=== PATIENT | male | born 1980 | race Caucasian/White ===

== ENCOUNTER 2016-12-05 13:47 | Emergency (ER) ==
[2016-12-05 13:57] VITALS: BP 120/78; TEMP 97.7; BMI 23.5
--- NOTE | 2016-12-05 14:15 | ED.PDOC ---
General ED Provider: Dr. MALI TERAN JR Chief Complaint: Tooth Problem Stated Complaint: Teeth carious at gum line. Several teeth hurt. Tylenol not helping. States unable to get dental appt until January. [ End ]97.7 104 20 96% 120/78 810 CONCERNED ABOUT FAMILY HISTORY OF CANCER AND LINGUAL LIGAMENT Time Seen by Physician: 14:13 Mode of Arrival: Walk-In Information Source: Patient Exam Limitations: No limitations [facility] Nursing and Triage Documentation Reviewed and Agree: No Review of Systems - Review Of Systems Constitutional: Reports: No symptoms Eyes: Reports: No symptoms Ears, Nose, Mouth, Throat: Reports: Mouth pain Respiratory: Reports: No symptoms Cardiac: Reports: No symptoms GI: Reports: No symptoms : Reports: No symptoms Musculoskeletal: Reports: No symptoms Skin: Reports: No symptoms Neurological: Reports: No symptoms Endocrine: Reports: No symptoms Hematologic/Lymphatic: Reports: No symptoms All Other Systems: Reviewed and Negative Past Medical History - Past Medical History Endocrine: Reports: None Cardiovascular: Reports: None Respiratory: Reports: None Hematological: Reports: None Gastrointestinal: Reports: None Genitourinary: Reports: None Neuro/Psych: Reports: None Musculoskeletal: Reports: None Cancer: Reports: None Other Pertinent Past Medical History: PINEAL GLAND MASS, GALL BLADDER[ End ] - Surgical History General Surgical History: Reports: Cholecystectomy, Other - Family History Family History: Reports: Cancer - Social History Smoking Status: Current every day smoker Hx Substance Use: No Alcohol Screening: None Physical Exam - Physical Exam Appearance: Well-appearing Pain Distress: Moderate Eyes: BIANCA, EOMI, Conjunctiva clear ENT: Erythema Neck: Supple Respiratory: Airway patent, Breath sounds clear, Breath sounds equal, Respirations nonlabored Cardiovascular: RRR, Pulses normal, No rub, No murmur GI/: Soft, Nontender, No masses, Bowel sounds normal, No Organomegaly Musculoskeletal: Normal strength, ROM intact, No edema, No calf tenderness Skin: Warm, Dry, Normal color Neurological: Sensation intact, Motor intact, Reflexes intact, Cranial nerves intact, Alert, Oriented Psychiatric: Affect appropriate, Mood appropriate Critical Care Note - Critical Care Note Total Time (mins): 0 Course - Course Vital Signs: Temp Pulse Resp BP Pulse Ox 12/05/16 13:48 97.7 F 104 H 20 120/78 96 Departure - Departure Time of Disposition: 14:14 Disposition: HOME SELF-CARE Discharge Problem: Toothache Instructions: Toothache (ED) Condition: Fair Pt referred to PMD for follow-up: Yes Additional Instructions: FOLLOW UP DENTIST SOON POSSIBLE NAPROSYN FOR PAIN PENICILLIN FOR INFECTION call or follow up with PMD if any difficulty with medications no evidence of cancer on physical exam with family history cancer would have GI evaluation at 40 or 45 years old consider lymph node biopsy if nodes enlarged(not clinically enlarged) tongue appears normal discuss pineal gland follow up with PMD Prescriptions: Naproxen [Naprosyn] 500 mg PO Q12HR PRN #30 tablet PRN Reason: PAIN Penicillin V Potassium 500 mg PO QID #28 tablet Allergies/Adverse Reactions: Allergies aspirin Adverse Reaction (Verified 12/05/16 13:57) SURGICAL TAPE Adverse Reaction (Uncoded 06/01/14 14:40) Home Medications: Ambulatory Orders Naproxen [Naprosyn] 500 mg PO Q12HR PRN #30 tablet 12/05/16 Penicillin V Potassium 500 mg PO QID #28 tablet 12/05/16
== END 2016-12-05 14:33 | disposition home or self-care (01) ==
LOC: ED 13:47
DX: K08.89 Other specified disorders of teeth and supporting structures (principal); K02.7 Dental root caries; F17.210 Nicotine dependence, cigarettes, uncomplicated; Z80.9 Family history of malignant neoplasm, unspecified
CPT/HCPCS: 99282

== ENCOUNTER 2017-04-12 17:50 | Emergency (ER) ==
[2017-04-12 18:00] VITALS: BP 128/82; TEMP 97.5; BMI 22.5
--- NOTE | 2017-04-12 18:12 | ED.PDOC ---
General ED Provider: Dr. FREEDOM SORIANO Chief Complaint: Abscess Stated Complaint: abscess right face Time Seen by Physician: 18:00 Mode of Arrival: Walk-In Information Source: Patient Exam Limitations: No limitations Nursing and Triage Documentation Reviewed and Agree: Yes Skin Complaint Exam - Skin/Soft Tissue Complaint/Exam Symptoms Are: Still present Timing: Constant Initial Severity: Mild Current Severity: Mild Character: Reports: Swelling, Raised, Painful Aggravating: Reports: None Alleviating: Reports: None Associated Signs and Symptoms: Denies: Fever, Chills, Itching, Drainage, Bruising, Tenderness, Red streaks, Joint swelling Related History: Reports: Similar episode Related Surgical History: Reports: None Recent Exposure to Others w/Similar Symptoms: No Skin Findings: Present: Pustules Joint Tenderness Present: No Differential Diagnoses: Abscess, MRSA, VRE Review of Systems - Review Of Systems Constitutional: Reports: No symptoms Eyes: Reports: No symptoms Ears, Nose, Mouth, Throat: Reports: No symptoms Respiratory: Reports: No symptoms Cardiac: Reports: No symptoms GI: Reports: No symptoms : Reports: No symptoms Musculoskeletal: Reports: No symptoms Skin: Reports: Other (abscess) Neurological: Reports: No symptoms Endocrine: Reports: No symptoms Hematologic/Lymphatic: Reports: No symptoms All Other Systems: Reviewed and Negative Past Medical History - Past Medical History Previously Healthy: Yes Endocrine: Reports: None Cardiovascular: Reports: None Respiratory: Reports: None Hematological: Reports: None Gastrointestinal: Reports: None Genitourinary: Reports: None Neuro/Psych: Reports: None Musculoskeletal: Reports: None Cancer: Reports: None Other Pertinent Past Medical History: PINEAL GLAND MASS, GALL BLADDER[ End ] - Surgical History General Surgical History: Reports: Cholecystectomy, Other - Family History Family History: Reports: Cancer - Social History Smoking Status: Current some day smoker Hx Substance Use: No Alcohol Screening: None - Immunizations Tetanus Shot up to Date: Yes Physical Exam - Physical Exam Appearance: Well-appearing, No pain distress, Well-nourished Eyes: BIANCA, EOMI, Conjunctiva clear ENT: Ears normal, Nose normal, Oropharynx normal Respiratory: Airway patent, Breath sounds clear, Breath sounds equal, Respirations nonlabored Cardiovascular: RRR, Pulses normal, No rub, No murmur GI/: Soft, Nontender, No masses, Bowel sounds normal, No Organomegaly Musculoskeletal: Normal strength, ROM intact, No edema, No calf tenderness Skin: Warm, Dry (1cm abscess jaw see photo), Normal color Neurological: Sensation intact, Motor intact, Reflexes intact, Cranial nerves intact, Alert, Oriented Psychiatric: Affect appropriate, Mood appropriate Critical Care Note - Critical Care Note Total Time (mins): 0 Course - Course Vital Signs: Temp Pulse Resp BP Pulse Ox 04/12/17 17:51 97.5 F L 119 H 16 128/82 96 Departure - Departure Time of Disposition: 18:11 Disposition: HOME SELF-CARE Discharge Problem: Abscess Instructions: Abscess (ED) Condition: Good Pt referred to PMD for follow-up: Yes Allergies/Adverse Reactions: Allergies aspirin Adverse Reaction (Verified 04/12/17 17:57) SURGICAL TAPE Adverse Reaction (Uncoded 06/01/14 14:40) Home Medications: Ambulatory Orders 1 [No Reported Medications] 04/12/17
== END 2017-04-12 18:21 | disposition home or self-care (01) ==
LOC: ED 17:50
DX: L02.01 Cutaneous abscess of face (principal); F17.210 Nicotine dependence, cigarettes, uncomplicated
CPT/HCPCS: 99282